=== PATIENT | male | born 1980 | race Caucasian/White ===

== ENCOUNTER 2017-11-18 07:33 | Emergency (ER) | END 2017-11-18 10:28 | disposition home or self-care (01) ==

== ENCOUNTER 2018-01-29 18:10 | Emergency (ER) | END 2018-01-29 22:21 | disposition home or self-care (01) ==

== ENCOUNTER 2018-01-30 22:40 | Observation (INO) | END 2018-02-01 17:45 | disposition home or self-care (01) ==